=== PATIENT | male | born 1940 | race Caucasian/White ===

== ENCOUNTER 2023-12-15 21:57 | Inpatient (IN) | payer OTHER ==
[~2023-12-15] VITALS: Ht 170.2 cm; Wt 52.1 kg
[2023-12-16] VITALS (10 sets, daily range): BP systolic 99–136; BP diastolic 47–64; PULSE 60–86; RESP 16–20; TEMP 97.6–99.5; O2SAT 91–98
[2023-12-16] MEDS ORDERED: ACETAMINOPHEN 325 MG TAB PO PRN
[2023-12-16] MEDS ORDERED: MORPHINE SULFATE INJ 2 MG/ml SYRG IV PRN
[2023-12-16] MEDS ORDERED: hydrALAZINE HCL 10 MG TAB PO PRN
[2023-12-16] MEDS ORDERED: IPRATROPIUM BROM 0.5 MG/2.5ML INH SOL NEB PRN (00:15)
[2023-12-16 01:19] LABS: INR 1.11 (0.9-1.15); Prothrombin Time 11.6 sec (9.3-11.8)
[2023-12-16 06:17] LABS: Basophils # (auto) 0 10 ^3/uL (0-0.2); Basophils % (auto) 0.2 % (0.0-2.0); Eosinophils # (auto) 0 10 ^3/uL (0-0.8); Eosinophils % (auto) 0.1 % (0.0-7.0); Hematocrit 33.6 % (41.0-53.0); Hemoglobin 11.4 g/dL (13.5-17.5); Lymphocytes # (auto) 0.8 10 ^3/uL (0.4-5.4); Lymphocytes % (auto) 8.5 % (10.0-50.0); Mean Corpuscular Hemoglobin 31.9 pg (28.0-32.0); Mean Corpuscular Volume 93.8 fL (80.0-100.0); Monocytes # (auto) 1.2 10 ^3/uL (0-1.3); Monocytes % (auto) 13.4 % (0.0-12.0); Neutrophils # (auto) 7.2 10 ^3/uL (1.6-8.6); Neutrophils % (auto) 77.8 % (37.0-80.0); Nucleated Red Blood Cells % 0.1 %; Red Blood Cells 3.58 10^6/uL (4.5-5.90); Red Cell Distribution Width 12.8 % (11.8-14.3); White Blood Cell 9.2 10^3/uL (4.4-10.8)
[2023-12-16 06:30] LABS: Anion Gap 9 (5-15); Carbon Dioxide 25 mmol/L (20-30); Chloride 100 mmol/L (98-107); Sodium 134 mmol/L (136-145)
[2023-12-16 06:31] LABS: Calcium 8.9 mg/dL (8.5-10.1)
[2023-12-16 06:36] LABS: Glucose 113 mg/dL (74-106)
[2023-12-16 06:37] LABS: BUN/Creatinine Ratio 9.7 (10.0-20.0); Blood Urea Nitrogen 9 mg/dL (9-23)
[2023-12-16] MEDS ORDERED: MIDAZOLAM HCL 2MG/2ML 2ml VIAL (1mg/ml) IV ONE (08:00)
[2023-12-16] MEDS ORDERED: fentaNYL CITRATE 100 MCG/2 ML VL IV ONE (08:00)
[2023-12-16] MEDS: PANTOPRAZOLE 40 MG/10 ML VIAL INJ IV SCH (14:50)
[2023-12-16] MEDS: HYDROcodone-ACET 5/325MG TAB PO PRN (14:51)
[2023-12-16] MEDS: cefTRIAXone 1GM/50ML D5W 50 ML IV SCH (14:51)
[2023-12-17] VITALS (7 sets, daily range): BP systolic 100–148; BP diastolic 56–68; PULSE 79–93; RESP 16–18; TEMP 97.6–98.5; O2SAT 91–96
[2023-12-17] MEDS: ONDANSETRON HCL 4 MG/2 ML VIAL IV PRN (02:39)
[2023-12-17 08:06] LABS: INR 1.14 (0.9-1.15); Partial Thromboplastin Time 31.8 SEC (24.5-34.5); Prothrombin Time 11.9 sec (9.3-11.8)
[2023-12-17] MEDS ORDERED: IOHEXOL 300 MG/ML 100ML BOTTLE IJ ONE (11:02)
[2023-12-17] MEDS ORDERED: LIDOCAINE 2%HCL (LOCAL ANESTH.) INJ 10ml MDV ONE (11:02)
[2023-12-17] MEDS ORDERED: fentaNYL CITRATE 100 MCG/2 ML VL IV ONE (11:15)
[2023-12-17] MEDS ORDERED: MIDAZOLAM HCL 2MG/2ML 2ml VIAL (1mg/ml) IV ONE (11:15)
[2023-12-17] MEDS: SODIUM CHLORIDE 0.9% 1,000 ML IV SCH (13:49)
[2023-12-18 08:06] LABS: PSA Free >50.00 ng/mL
== END 2023-12-17 18:09 | disposition home or self-care (01) | DRG 824 ==
LOC: TELE-WESTW 12-16 00:04
PROVIDERS: ADMIT Nurse Practitioner Family; ATTEND Nurse Practitioner Family
PROC: 07B63ZX Excision of Left Axillary Lymphatic, Percutaneous Approach, Diagnostic (ICD-10-PCS; principal; 2023-12-17)
DX: C77.8 Secondary and unspecified malignant neoplasm of lymph nodes of multiple regions (principal); E44.1 Mild protein-calorie malnutrition; J98.11 Atelectasis; N39.0 Urinary tract infection, site not specified; Z68.1 Body mass index [BMI] 19.9 or less, adult; C61 Malignant neoplasm of prostate; J44.9 Chronic obstructive pulmonary disease, unspecified; R16.0 Hepatomegaly, not elsewhere classified; D18.03 Hemangioma of intra-abdominal structures; Z80.1 Family history of malignant neoplasm of trachea, bronchus and lung; Z80.42 Family history of malignant neoplasm of prostate; Z82.5 Family history of asthma and other chronic lower respiratory diseases; Z87.891 Personal history of nicotine dependence
CPT/HCPCS: 10005; 36415; 71045; 71260; 74176; 74177; 76942; 77012; 80048; 84154; 85025; 85610; 85730; 87040; 87086; 93005; 97163; C9113; G0378; J2001; J2250; J2405